=== PATIENT | female | born 1935 | race Caucasian/White ===

== ENCOUNTER 2018-11-28 15:56 | Observation (INO) | payer MEDICARE, BC ==
--- NOTE | 2018-11-28 16:17 | EDM.PDOC ---
<Jerrell Senior - Last Filed: 11/28/18 19:36> ED HPI GENERAL MEDICAL PROBLEM - General Chief Complaint: Abdominal Pain Stated Complaint: SENT BY DR. WHITEHEAD Time Seen by Provider: 11/28/18 16:12 - History of Present Illness INITIAL COMMENTS - FREE TEXT/NARRATIVE: 83-year-old female presents emergency room with abdominal pain. Patient was seen at the [facility], and sent here, she may have a bladder infection which she gets frequently. She is developing significant right lower quadrant pain. She was seen a here in June with the same thing but this is much worse. She was thought to be constipated at that point. The patient had a loose BM yesterday and a normal BM today and denies constipation. She has some nausea no vomiting denies any fevers or chills. Right Abdominal Pain Score (Numeric/FACES): 7 - Related Data Allergies Allergy/AdvReac Type Severity Reaction Status Date / Time Penicillins Allergy Severe Other Verified 11/28/18 16:10 Cephalosporins Allergy Other Verified 11/28/18 16:10 ciprofloxacin [From Cipro] Allergy Vomiting Verified 11/28/18 16:11 meloxicam Allergy Vomiting Verified 11/28/18 16:11 Home Meds: Home Meds Acetaminophen [Pain Reliever] 1,000 mg PO Q6H PRN 01/30/14 [History] Diltiazem [Cardizem CD] 180 mg PO DAILY 01/30/14 [History] Pantoprazole Sodium 40 mg PO DAILY 01/30/14 [History] Potassium Citrate [Potassium Citrate ER] 10 meq PO DAILY 03/30/15 [History] Rosuvastatin [Crestor] 20 mg PO DAILY 03/30/15 [History] Aspirin [Adult Low Dose Aspirin EC] 81 mg PO DAILY 11/28/18 [History] Cyanocobalamin (Vitamin B12) [Vitamin B12] 1,000 mcg PO DAILY 11/28/18 [History] Fish Oil/[place]-3 Fatty Acids [Fish Oil 1,000 MG] 1 each PO DAILY 11/28/18 [ History] Lactulose 10 gm PO Q12H #500 ml 11/28/18 [Rx] Nitrofurantoin Monohyd/M-Cryst [Macrobid 100 mg Capsule] 100 mg PO Q12H #10 capsule 11/28/18 [Rx] Past Medical History HEENT History: Reports: Impaired Vision Cardiovascular History: Reports: High Cholesterol, Hypertension Gastrointestinal History: Reports: Chronic Constipation (Occasional problems with constipation), GERD, GI Bleed, Other (See Below) (Remote history of bleeding ulcer.) Other Gastrointestinal History: "bleeding ulcer" Genitourinary History: Reports: Renal Calculus (Recurrent falls with multiple renal calculi requiring lithotripsy and 1 nephrostomy tube removal of stone in the kidney due to recurrent urinary tract infection. This was done by Dr. Prince in [place]. Usually is followed by Dr. Chowdary in [place].) Other Genitourinary History: Kidney stones Social & Family History - Family History Cardiac: Reports: [place] - Caffeine Use Caffeine Use: Reports: Coffee - Living Situation & Occupation Living situation: Reports: Occupation: Retired ED ROS GENERAL - Review of Systems Review Of Systems: See Below Constitutional: Reports: No Symptoms HEENT: Reports: No Symptoms Respiratory: Reports: No Symptoms Cardiovascular: Reports: No Symptoms GI/Abdominal: Reports: Abdominal Pain, Diarrhea, Nausea. Denies: Constipation, Vomiting : Reports: Dysuria, Flank Pain Musculoskeletal: Reports: No Symptoms Skin: Reports: No Symptoms Neurological: Reports: No Symptoms ED EXAM, GI/ABD - Physical Exam Exam: See Below General Appearance: Alert, No Apparent Distress Head: Atraumatic, Normocephalic Neck: Normal Inspection, Supple, Non-Tender, Full Range of Motion Respiratory/Chest: No Respiratory Distress, Lungs Clear, Normal Breath Sounds Cardiovascular: Regular Rate, Rhythm, No Edema, No Murmur GI/Abdominal Exam: Normal Bowel Sounds, Soft, Other (Significant right lower quadrant discomfort and suprapubic discomfort no rigidity rebound or guarding noted) Back Exam: Normal Inspection, CVA Tenderness (R). No: CVA Tenderness (L) Extremities: Normal Inspection, Normal Range of Motion Neurological: Alert, Oriented, Normal Cognition Psychiatric: Normal Affect, Normal Mood Course - Vital Signs Last Recorded V/S: Last Vital Signs Temp 98.0 F 11/28/18 16:11 Pulse 62 11/28/18 16:11 Resp 18 11/28/18 16:11 BP 149/56 H 11/28/18 16:11 Pulse Ox 97 11/28/18 16:11 - Orders/Labs/Meds Orders: Active Orders 24 hr Category Date Time Status Abdomen 2V AP Flat Upright [CR] Stat Exams 11/28/18 16:36 Taken Abdomen Pelvis w Cont [CT] Stat Exams 11/28/18 17:41 Taken CULTURE URINE [RM] Stat Lab 11/28/18 14:00 Received Levofloxacin/Dextrose 5%-Water [Levaquin in D5W 500 MG/ Med 11/28/18 21:15 Active 100 ML] 500 mg Premix Bag 1 bag IV Q24H Sodium Chloride 0.9% [Normal Saline] 1,000 ml Med 11/28/18 17:43 Active IV ONETIME metroNIDAZOLE/Normal Saline [Flagyl 500 MG in NS 100 ML Med 11/28/18 21:15 Active ] 500 mg Premix Bag 1 bag IV Q8H Medication Orders Sodium Chloride (Normal Saline) 1,000 mls @ 125 mls/hr IV ONETIME ONE Stop: 11/29/18 01:42 Last Admin: 11/28/18 17:52 Dose: 500 mls/hr Metronidazole 500 mg/ Premix 100 mls @ 100 mls/hr IV Q8H MISSAEL Levofloxacin/Dextrose 500 mg/ (Premix) 100 mls @ 100 mls/hr IV Q24H MISSAEL Last Admin: 11/28/18 21:19 Dose: 100 mls/hr Labs: Laboratory Tests 11/28/18 11/28/18 11/28/18 Range/Units 14:40 16:50 16:50 WBC 11.56 H (3.98-10.04) K/mm3 RBC 4.91 (3.98-5.22) M/mm3 Hgb 13.8 (11.2-15.7) gm/L Hct 42.6 (34.1-44.9) % MCV 86.8 (79.4-94.8) fl MCH 28.1 (25.6-32.2) pg MCHC 32.4 (32.2-35.5) g/dl RDW Std Deviation 41.9 (36.4-46.3) fL Plt Count 258 D (182-369) K/mm3 MPV 10.5 (9.4-12.3) fl Neutrophils % (Manual) 63 H (40-60) % Band Neutrophils % 1 (0-10) % Lymphocytes % (Manual) 29 (20-40) % Atypical Lymphs % 4 % Monocytes % (Manual) 3 (2-10) % Eosinophils % (Manual) 0 L (0.7-5.8) % Basophils % (Manual) 0 L (0.1-1.2) Platelet Estimate Adequate RBC Morph Comment Normal Sodium 140 (136-145) mEq/L Potassium 4.2 (3.5-5.1) mEq/L Chloride 103 (98-107) mEq/L Carbon Dioxide 28 (21-32) mEq/L Anion Gap 13.2 (5-15) BUN 19 H (7-18) mg/dL Creatinine 0.9 (0.55-1.02) mg/dL Est Cr Clr Drug Dosing 43.37 mL/min Estimated GFR (MDRD) 60 (>60) mL/min BUN/Creatinine Ratio 21.1 H (14-18) Glucose 97 (83-115) mg/dL Calcium 11.2 H D (8.5-10.1) mg/dL Total Bilirubin 0.6 (0.2-1.0) mg/dL AST 16 (15-37) U/L ALT 19 (14-59) U/L Alkaline Phosphatase 100 (46-116) U/L Total Protein 7.4 (6.4-8.2) g/dl Albumin 3.4 (3.4-5.0) g/dl Globulin 4.0 gm/dL Albumin/Globulin Ratio 0.9 L (1-2) Urine Color Yellow (Yellow) Urine Appearance Slt cloudy H (Clear) Urine pH 7.0 (5.0-8.0) Ur Specific [place] 1.015 (1.005-1.030) Urine Protein Negative (Negative) Urine Glucose (UA) Negative (Negative) Urine Ketones Negative (Negative) Urine Occult Blood 2+ H (Negative) Urine Nitrite Negative (Negative) Urine Bilirubin Negative (Negative) Urine Urobilinogen 0.2 (0.2-1.0) Ur Leukocyte Esterase 2+ H (Negative) Urine RBC 0-5 (0-5) /hpf Urine WBC 5-10 H (0-5) /hpf Ur Squamous Epith Cells 0-5 (0-5) /hpf Urine Bacteria Few (FEW) /hpf Urine Mucus Not seen (FEW) /hpf Meds: Medications Generic Name Dose Route Start Last Admin Trade Name Freq PRN Reason Stop Dose Admin Sodium Chloride 1,000 mls @ 125 mls/hr 11/28/18 17:43 11/28/18 17:52 Normal Saline IV 11/29/18 01:42 500 mls/hr ONETIME ONE Administration Metronidazole 500 mg/ Premix 100 mls @ 100 mls/hr 11/28/18 21:15 IV Q8H MISSAEL Levofloxacin/Dextrose 500 mg/ 100 mls @ 100 mls/hr 11/28/18 21:15 11/28/18 21 :19 Premix IV 100 mls/hr Q24H MISSAEL Administration - Re-Assessments/Exams Free Text/Narrative Re-Assessment/Exam: 11/28/18 17:39 Urinalysis could be consistent with a early urinary tract infection 2+ leukocyte Estrace no nitrates a few red cells a few more WBCs and a few bacteria noted. CBC and chemistries unrevealing KUB and upright were done she's got a full stool pattern in the colon. Reexamination of her abdomen shows right lower quadrant discomfort. With her age and and certainly is reasonable to go ahead and check a CT. Departure - Departure Disposition: Refer to Observation Clinical Impression: Diverticulitis of sigmoid colon Abdominal pain Qualifiers: Abdominal location: lower abdomen, unspecified Qualified Code(s): R10.30 - Lower abdominal pain, unspecified - Discharge Information Prescriptions: Lactulose 10 gm PO Q12H #500 ml Nitrofurantoin Monohyd/M-Cryst [Macrobid 100 mg Capsule] 100 mg PO Q12H #10 capsule Additional Instructions: Return to the emergency room with any questions problems worsening symptoms. Take the antibiotics as directed it is possible you have an early bladder infection. I started you on lactulose take 1 tablespoon twice daily in the beginning you can take 2 tablespoons in the morning 1 tablespoon in the evening it may take up to 48 hours for you to get some relief if the cause ear pain is indeed constipation. - My Orders Last 24 Hours: My Active Orders 11/28/18 21:15 Levofloxacin/Dextrose 5%-Water [Levaquin in D5W 500 MG/100 ML] 500 mg Premix Bag 1 bag IV Q24H metroNIDAZOLE/Normal Saline [Flagyl 500 MG in NS 100 ML] 500 mg Premix Bag 1 bag IV Q8H - Assessment/Plan Last 24 Hours: My Active Orders 11/28/18 21:15 Levofloxacin/Dextrose 5%-Water [Levaquin in D5W 500 MG/100 ML] 500 mg Premix Bag 1 bag IV Q24H metroNIDAZOLE/Normal Saline [Flagyl 500 MG in NS 100 ML] 500 mg Premix Bag 1 bag IV Q8H <Khoa Acevedo Hazel - Last Filed: 11/28/18 21:33> Course - Re-Assessments/Exams Free Text/Narrative Re-Assessment/Exam: 11/28/18 21:01 CT scan of her abdomen shows a sigmoid diverticulitis. There is no abscess formation noted. I spoke to Dr. Sanderson regarding the CT scan and she is allergic to cephalosporins as well as penicillins and has a vomiting allergy to Cipro. We're going to start some Flagyl IV and Levaquin IV and put her in observation for the night to make sure she tolerates these medications. I spoke to the patient regarding her findings and our desire to put her in observation with IV antibiotics and she is good with this. 11/28/18 21:10 I spoke to the patient regarding her admission and observation and IV antibiotics. She is okay with us giving her the antibiotics IV and being placed in observation overnight. 11/28/18 21:32 Patient is comfortable and will be placed in observation shortly. Departure - Departure Time of Disposition: 21:03 Condition: Fair ED Communication - ED Communication Date/Time Date: 11/28/18 Time Called: 21:04 - Discussed Case With (1) Discussed Case With (1): Admitting Provider Person/s Notified (1): Mago Rucker (He will admitted to observation) - My Orders Last 24 Hours: My Active Orders 11/28/18 21:15 Levofloxacin/Dextrose 5%-Water [Levaquin in D5W 500 MG/100 ML] 500 mg Premix Bag 1 bag IV Q24H metroNIDAZOLE/Normal Saline [Flagyl 500 MG in NS 100 ML] 500 mg Premix Bag 1 bag IV Q8H - Assessment/Plan Last 24 Hours: My Active Orders 11/28/18 21:15 Levofloxacin/Dextrose 5%-Water [Levaquin in D5W 500 MG/100 ML] 500 mg Premix Bag 1 bag IV Q24H metroNIDAZOLE/Normal Saline [Flagyl 500 MG in NS 100 ML] 500 mg Premix Bag 1 bag IV Q8H
[2018-11-28] MEDS ORDERED: Sodium Chloride 0.9% 1,000 ML IV ONE (17:43)
[2018-11-28] MEDS ORDERED: Levofloxacin/Dextrose 5%-Water 500 MG in Premix Bag 1 BAG IV SCH (21:15)
[2018-11-28] MEDS: metroNIDAZOLE/Normal Saline 500 MG in Premix Bag 1 BAG IV SCH (22:33)
[2018-11-28] MEDS ORDERED: Ondansetron 4 MG/2 ML SDV IVPUSH PRN (23:01)
[2018-11-28] MEDS: Sodium Chloride 0.9% 1,000 ML IV SCH (23:26)
[2018-11-29] MEDS: metroNIDAZOLE/Normal Saline 500 MG in Premix Bag 1 BAG IV SCH ×3 (04:18→20:18)
[2018-11-29] MEDS: HYDROmorphone 0.5 MG/0.5 ML Syringe IVPUSH PRN ×3 (04:26→17:28)
--- NOTE | 2018-11-29 06:11 | PCM.HP ---
H&P History of Present Illness - General Date of Service: 11/29/18 Admit Problem/Dx: Admission Diagnosis/Problem Admission Diagnosis/Problem Diverticulitis Source of Information: Patient, Provider - History of Present Illness Initial Comments - Free Text/Narative: This 83-year-old female who presented to her primary care provider with right lower abdominal pain yesterday was then sent to the emergency room. Patient states that pain started after an episode of diarrhea. She had 4 episodes of liquid diarrhea. Diarrhea did resolve and she had a normal bowel movement yesterday morning. She did develop right lower quadrant pain that was worse with walking or movement. Sharp. Moderately severe. Sharp with movement and severe with movement. She felt tired. She presented to the emergency room a CT scan was performed which showed inflammation consistent with diverticulitis on the right side. She had mildly elevated white count and it was felt she could benefit from IV antibiotics and observation in the hospital. Patient denies any hematochezia, melena, nausea, vomiting, dysuria, frequency, productive cough, shortness of breath, chest pain. Right Abdominal Pain Score (Numeric/FACES): 4 - Related Data Allergies/Adverse Reactions: Allergies Allergy/AdvReac Type Severity Reaction Status Date / Time Penicillins Allergy Severe Other Verified 11/28/18 16:10 Cephalosporins Allergy Other Verified 11/28/18 16:10 ciprofloxacin [From Cipro] AdvReac Vomiting Verified 11/29/18 08:05 meloxicam AdvReac Vomiting Verified 11/29/18 08:05 Home Medications: Home Meds Acetaminophen [Pain Reliever] 1,000 mg PO TID PRN 01/30/14 [History] Diltiazem [Cardizem CD] 180 mg PO DAILY 01/30/14 [History] Pantoprazole Sodium 40 mg PO DAILY 01/30/14 [History] Potassium Citrate [Potassium Citrate ER] 10 meq PO DAILY 03/30/15 [History] Rosuvastatin [Crestor] 5 mg PO DAILY 03/30/15 [History] Aspirin [Adult Low Dose Aspirin EC] 81 mg PO DAILY 11/28/18 [History] Cyanocobalamin (Vitamin B12) [Vitamin B12] 1,000 mcg PO DAILY 11/28/18 [History] Fish Oil/[place]-3 Fatty Acids [Fish Oil 1,000 MG] 1 each PO DAILY 11/28/18 [ History] Past Medical History HEENT History: Reports: Impaired Vision Cardiovascular History: Reports: High Cholesterol, Hypertension Gastrointestinal History: Reports: Chronic Constipation, GERD, GI Bleed, Other ( See Below) Other Gastrointestinal History: "bleeding ulcer" Genitourinary History: Reports: Renal Calculus Other Genitourinary History: Kidney stones - Past Surgical History GI Surgical History: Reports: None Social & Family History - Family History Family Medical History: Noncontributory Cardiac: Reports: MD - Tobacco Use Smoking Status *Q: Current Every Day Smoker Years of Tobacco use: 66 Packs/Tins Daily: 1 Used Tobacco, but Quit: No Second Hand Smoke Exposure: No - Caffeine Use Caffeine Use: Reports: Coffee - Recreational Drug Use Recreational Drug Use: No - Living Situation & Occupation Living situation: Reports: Occupation: Retired H&P Review of Systems - Review of Systems: Review Of Systems: ROS reveals no pertinent complaints other than HPI. General: Reports: Fatigue. Denies: Fever, Chills Exam - Exam Exam: See Below - Vital Signs Vital Signs: Last Vital Signs Temp 98.8 F 11/28/18 22:01 Pulse 75 11/28/18 22:01 Resp 14 11/28/18 22:01 BP 149/56 H 11/28/18 16:11 Pulse Ox 95 11/28/18 22:01 Weight: 143 lb 9.6 oz - Exam General: Alert, Oriented HEENT: Conjunctiva Clear, Mucosa Moist & [place], Posterior Pharynx Clear Neck: Supple, Trachea Midline Lungs: Clear to Auscultation, Normal Respiratory Effort Cardiovascular: Regular Rate, Regular Rhythm, Systolic Murmur GI/Abdominal Exam: Normal Bowel Sounds, Soft, No Organomegaly, No Distention, Tender (Mildly tender without guarding or rebound.) Back Exam: Normal Inspection Extremities: Normal Inspection, Normal Range of Motion, Non-Tender, Pedal Edema Skin: Warm, Dry, Intact Neuro Extensive - Mental Status: Alert, Oriented x3, Normal Mood/Affect Neuro Extensive - Motor, Sensory, Reflexes: CN II-XII Intact - Patient Data Lab Results Last 24 hrs: Laboratory Results - last 24 hr 11/28/18 11/28/18 11/28/18 Range/Units 14:40 16:50 16:50 WBC 11.56 H (3.98-10.04) K/mm3 RBC 4.91 (3.98-5.22) M/mm3 Hgb 13.8 (11.2-15.7) gm/L Hct 42.6 (34.1-44.9) % MCV 86.8 (79.4-94.8) fl MCH 28.1 (25.6-32.2) pg MCHC 32.4 (32.2-35.5) g/dl RDW Std Deviation 41.9 (36.4-46.3) fL Plt Count 258 D (182-369) K/mm3 MPV 10.5 (9.4-12.3) fl Neutrophils % (Manual) 63 H (40-60) % Band Neutrophils % 1 (0-10) % Lymphocytes % (Manual) 29 (20-40) % Atypical Lymphs % 4 % Monocytes % (Manual) 3 (2-10) % Eosinophils % (Manual) 0 L (0.7-5.8) % Basophils % (Manual) 0 L (0.1-1.2) Platelet Estimate Adequate RBC Morph Comment Normal Sodium 140 (136-145) mEq/L Potassium 4.2 (3.5-5.1) mEq/L Chloride 103 (98-107) mEq/L Carbon Dioxide 28 (21-32) mEq/L Anion Gap 13.2 (5-15) BUN 19 H (7-18) mg/dL Creatinine 0.9 (0.55-1.02) mg/dL Est Cr Clr Drug Dosing 43.37 mL/min Estimated GFR (MDRD) 60 (>60) mL/min BUN/Creatinine Ratio 21.1 H (14-18) Glucose 97 (83-115) mg/dL Calcium 11.2 H D (8.5-10.1) mg/dL Total Bilirubin 0.6 (0.2-1.0) mg/dL AST 16 (15-37) U/L ALT 19 (14-59) U/L Alkaline Phosphatase 100 (46-116) U/L Total Protein 7.4 (6.4-8.2) g/dl Albumin 3.4 (3.4-5.0) g/dl Globulin 4.0 gm/dL Albumin/Globulin Ratio 0.9 L (1-2) Urine Color Yellow (Yellow) Urine Appearance Slt cloudy H (Clear) Urine pH 7.0 (5.0-8.0) Ur Specific [place] 1.015 (1.005-1.030) Urine Protein Negative (Negative) Urine Glucose (UA) Negative (Negative) Urine Ketones Negative (Negative) Urine Occult Blood 2+ H (Negative) Urine Nitrite Negative (Negative) Urine Bilirubin Negative (Negative) Urine Urobilinogen 0.2 (0.2-1.0) Ur Leukocyte Esterase 2+ H (Negative) Urine RBC 0-5 (0-5) /hpf Urine WBC 5-10 H (0-5) /hpf Ur Squamous Epith Cells 0-5 (0-5) /hpf Urine Bacteria Few (FEW) /hpf Urine Mucus Not seen (FEW) /hpf Result Diagrams: 11/29/18 05:54 11/29/18 05:54 - Problem List (1) Abdominal pain SNOMED Code(s): 11193393 ICD Code: R10.9 - UNSPECIFIED ABDOMINAL PAIN Status: Acute Current Visit : Yes Qualifiers: Abdominal location: lower abdomen, unspecified Qualified Code(s): R10.30 - Lower abdominal pain, unspecified (2) Diverticulitis of sigmoid colon SNOMED Code(s): 373607131 ICD Code: K57.32 - DVTRCLI OF LG INT W/O PERFORATION OR ABSCESS W/O BLEEDING Status: Acute Current Visit: Yes (3) Urinary tract infection SNOMED Code(s): 04822904 ICD Code: N39.0 - URINARY TRACT INFECTION, SITE NOT SPECIFIED Status: Acute Current Visit: Yes Qualifiers: Encounter type: initial encounter Problem List Initiated/Reviewed/Updated: Yes Orders Last 24hrs: Active Orders 24 hr Category Date Time Status Patient Status [ADT] Routine ADT 11/28/18 21:39 Active Up With Assistance [RC] ASDIRECTED Care 11/28/18 22:58 Active Regular Diet [DIET] Diet 11/29/18 Breakfast Ordered Abdomen 2V AP Flat Upright [CR] Stat Exams 11/28/18 16:36 Taken Abdomen Pelvis w Cont [CT] Stat Exams 11/28/18 17:41 Taken CBC WITH AUTO DIFF [HEME] Routine Lab 11/29/18 05:02 Ordered COMPREHENSIVE METABOLIC PN,CMP [CHEM] Routine Lab 11/29/18 05:02 Ordered CULTURE URINE [RM] Stat Lab 11/28/18 14:00 Received MAGNESIUM [CHEM] Routine Lab 11/29/18 05:02 Ordered Diltiazem [Cardizem CD] Med 11/29/18 09:00 Active 180 mg PO DAILY HYDROmorphone [Dilaudid] Med 11/28/18 23:02 Active 0.5 mg IVPUSH Q2H PRN Ondansetron [Zofran] Med 11/28/18 23:01 Active 4 mg IVPUSH Q6H PRN Pantoprazole [ProTONIX] Med 11/29/18 09:00 Active 40 mg PO DAILY Potassium Citrate [Potassium Citrate ER] Med 11/29/18 09:00 Pending 10 meq PO DAILY Rosuvastatin [Crestor] Med 11/29/18 09:00 Active 5 mg PO DAILY Sodium Chloride 0.9% [Normal Saline] 1,000 ml Med 11/28/18 23:00 Active IV ASDIRECTED levoFLOXacin [Levaquin] Med 11/29/18 21:00 Ordered 750 mg PO Q24H metroNIDAZOLE/Normal Saline [Flagyl 500 MG in NS 100 ML Med 11/28/18 21:15 Active ] 500 mg Premix Bag 1 bag IV Q8H Code Status [Resuscitation Status] Routine Resus Stat 11/28/18 22:57 Ordered Medication Orders Diltiazem HCl (Cardizem Cd) 180 mg PO DAILY [facility] Hydromorphone HCl (Dilaudid) 0.5 mg IVPUSH Q2H PRN PRN Reason: Pain Last Admin: 11/29/18 04:26 Dose: 0.5 mg Metronidazole 500 mg/ Premix 100 mls @ 100 mls/hr IV Q8H [facility] Last Admin: 11/29/18 04:18 Dose: 100 mls/hr Infusion: 11/28/18 23:33 Dose: 100 mls/hr Admin: 11/28/18 22:33 Dose: 100 mls/hr Sodium Chloride (Normal Saline) 1,000 mls @ 125 mls/hr IV ASDIRECTED [facility] Last Admin: 11/28/18 23:26 Dose: 125 mls/hr Non-Formulary Medication (Potassium Citrate [Potassium Citrate Er]) 10 meq PO DAILY [facility] Ondansetron HCl (Zofran) 4 mg IVPUSH Q6H PRN PRN Reason: Nausea Pantoprazole Sodium (Protonix) 40 mg PO DAILY MISSAEL Rosuvastatin Calcium (Crestor) 5 mg PO DAILY MISSAEL Assessment/Plan Comment:: Diverticulitis * Patient is allergic to penicillin and cephalosporins. * White count was 11.5 the emergency room and 10.7 this morning. * Started on Levaquin 500 mg IV in the emergency room and we will convert that to 750 mg by mouth. She did give a history of Cipro allergy but it sounds like a GI intolerance and it may have been due to the meloxicam that she was taking at the same time. * Flagyl 500 mg every 8 hours * Follow patient symptomatically for her abdominal pain. This will likely be the limiting factor in getting her home. She is able to take orally and I will convert her to oral Flagyl tomorrow. * Dilaudid for severe pain and [place] for mild pain. Urinary tract infection * Levaquin should cover her UTI * Send her urine for culture Hypomagnesemia * Magnesium was 1.4 this morning we will supplement and recheck. Chronic medical problems include history of supraventricular tachycardia, hypertension, hyperlipidemia, heart murmur. CODE STATUS: Full code Estimated length of stay 1-2 days. Less than 48 hours.
[2018-11-29] MEDS ORDERED: Magnesium Sulfate/Water 4 GM in Premix Bag 1 BAG IV ONE (07:21)
[2018-11-29] MEDS ORDERED: POTASSIUM CITRATE 10 MEQ PO SCH (09:00)
[2018-11-29] MEDS ORDERED: Diltiazem 180 MG Cap.CD PO SCH (09:00)
[2018-11-29] MEDS ORDERED: Rosuvastatin 10 MG Tab PO SCH (09:00)
[2018-11-29] MEDS: Sodium Chloride 0.9% 1,000 ML IV SCH ×2 (10:15→19:15)
[2018-11-29] MEDS ORDERED: oxyCODONE 5 MG Tab PO PRN (14:28)
[2018-11-29] MEDS: PANTOPRAZOLE 40 MG PO SCH (14:59)
[2018-11-29] MEDS: Magnesium Oxide 400 MG Tab PO SCH (17:24)
[2018-11-29] MEDS: POTASSIUM CITRATE 10 MEQ PO SCH (20:02)
[2018-11-29] MEDS: DILTIAZEM 180 MG PO SCH (20:02)
[2018-11-29] MEDS: Rosuvastatin 10 MG Tab PO SCH (20:04)
[2018-11-29] MEDS ORDERED: Levofloxacin 750 MG Tab PO SCH (21:00)
[2018-11-30] MEDS: Sodium Chloride 0.9% 1,000 ML IV SCH (03:45)
[2018-11-30] MEDS: metroNIDAZOLE/Normal Saline 500 MG in Premix Bag 1 BAG IV SCH (05:03)
[2018-11-30] MEDS: HYDROmorphone 0.5 MG/0.5 ML Syringe IVPUSH PRN (06:39)
[2018-11-30] MEDS: Magnesium Oxide 400 MG Tab PO SCH ×2 (08:28→20:27)
[2018-11-30] MEDS: PANTOPRAZOLE 40 MG PO SCH (08:28)
[2018-11-30] MEDS ORDERED: Acetaminophen 325 MG Tab PO PRN (12:06)
[2018-11-30] MEDS ORDERED: Furosemide 20 MG/2 ML VIAL IVPUSH ONE (12:34)
[2018-11-30] MEDS ORDERED: Potassium Chloride 10 MEQ Tab.ER PO ONE (12:34)
--- NOTE | 2018-11-30 12:43 | PCM.PN ---
- General Info Date of Service: 11/30/18 Admission Dx/Problem (Free Text): Admission Diagnosis/Problem Admission Diagnosis/Problem Diverticulitis Subjective Update: Patient continues to complain of right lower quadrant pain. She states it is too severe to go home. Patient also had her IV fluids running overnight and has had a 10 pound weight gain. She has significant positive fluid intake. She denies any shortness of breath and she is maintaining her oxygenation. She has no history of CHF. Functional Status: Reports: Tolerating Diet. Denies: Pain Controlled - Review of Systems General: Reports: No Symptoms. Denies: Fever, Weakness HEENT: Reports: No Symptoms Pulmonary: Reports: No Symptoms. Denies: Shortness of Breath, Cough, Wheezing Cardiovascular: Reports: Edema. Denies: Chest Pain, Orthopnea, PND Gastrointestinal: Reports: Abdominal Pain. Denies: Nausea, Vomiting Skin: Reports: No Symptoms - Patient Data Vitals - Most Recent: Last Vital Signs Temp 97.7 F 11/30/18 08:33 Pulse 54 L 11/30/18 08:33 Resp 16 11/30/18 08:33 BP 133/55 L 11/30/18 08:33 Pulse Ox 92 L 11/30/18 08:33 Weight - Most Recent: 153 lb 8 oz I&O - Last 24 Hours: Intake & Output 11/29/18 11/30/18 11/30/18 22:59 06:59 14:59 Intake Total 1878 1851 300 Output Total 200 Balance 1878 1651 300 Lab Results Last 24 Hours: Laboratory Results - last 24 hr 11/29/18 11/30/18 11/30/18 Range/Units 05:54 05:49 05:49 WBC 9.66 (3.98-10.04) K/mm3 RBC 4.00 (3.98-5.22) M/mm3 Hgb 11.2 (11.2-15.7) gm/L Hct 34.8 (34.1-44.9) % MCV 87.0 (79.4-94.8) fl MCH 28.0 (25.6-32.2) pg MCHC 32.2 (32.2-35.5) g/dl RDW Std Deviation 41.1 (36.4-46.3) fL Plt Count 213 (182-369) K/mm3 MPV 10.3 (9.4-12.3) fl Neut % (Auto) 68.5 (34.0-71.1) % Lymph % (Auto) 17.0 L (19.3-51.7) % [place] % (Auto) 13.9 H (4.7-12.5) % Eos % (Auto) 0.4 L (0.7-5.8) Baso % (Auto) 0.1 (0.1-1.2) % Neut # (Auto) 6.62 H (1.56-6.13) K/mm3 Lymph # (Auto) 1.64 (1.18-3.74) K/mm3 [place] # (Auto) 1.34 H (0.24-0.36) K/mm3 Eos # (Auto) 0.04 (0.04-0.36) K/mm3 Baso # (Auto) 0.01 (0.01-0.08) K/mm3 Sodium 139 (136-145) mEq/L Potassium 3.7 (3.5-5.1) mEq/L Chloride 107 (98-107) mEq/L Carbon Dioxide 22 (21-32) mEq/L Anion Gap 13.7 (5-15) BUN 10 (7-18) mg/dL Creatinine 0.7 (0.55-1.02) mg/dL Est Cr Clr Drug Dosing 53.51 mL/min Estimated GFR (MDRD) > 60 (>60) mL/min BUN/Creatinine Ratio 14.3 (14-18) Glucose 101 (83-115) mg/dL Calcium 9.3 (8.5-10.1) mg/dL Magnesium 1.8 (1.8-2.4) mg/dl Total Bilirubin 0.4 (0.2-1.0) mg/dL AST 22 (15-37) U/L ALT 20 (14-59) U/L Alkaline Phosphatase 90 (46-116) U/L C-Reactive Protein 7.0 H* 7.6 H* (<1.0) mg/dL Total Protein 5.6 L (6.4-8.2) g/dl Albumin 2.5 L (3.4-5.0) g/dl Globulin 3.1 gm/dL Albumin/Globulin Ratio 0.8 L (1-2) Tu Results Last 24 Hours: Microbiology 05/24/19 14:00 Urine Culture - Final Urine, Clean Catch MIXED PETE SUGGESTIVE OF CONTAMINATION. Med Orders - Current: Current Medications Acetaminophen (Tylenol) 650 mg PO Q4H PRN PRN Reason: Pain Last Admin: 11/30/18 12:12 Dose: 650 mg Diltiazem HCl (Cardizem Cd) 180 mg PO BEDTIME [facility] Last Admin: 11/29/18 20:02 Dose: 180 mg Furosemide (Lasix) 10 mg IVPUSH NOW ONE Stop: 11/30/18 12:35 Hydromorphone HCl (Dilaudid) 0.5 mg IVPUSH Q2H PRN PRN Reason: Pain Last Admin: 11/30/18 06:39 Dose: 0.5 mg Levofloxacin (Levaquin) 750 mg PO Q48H [facility] Magnesium Oxide (Magnesium Oxide) 400 mg PO BID [facility] Last Admin: 11/30/18 08:28 Dose: 400 mg Metronidazole (Flagyl) 500 mg PO Q8H [facility] Ondansetron HCl (Zofran) 4 mg IVPUSH Q6H PRN PRN Reason: Nausea Oxycodone HCl (Oxycodone) 5 mg PO Q6H PRN PRN Reason: Pain Pantoprazole Sodium (Protonix) 40 mg PO DAILY [facility] Last Admin: 11/30/18 08:28 Dose: 40 mg Own Med * Potassium (Citrate Er 10 Meq) 0 each PO BEDTIME [facility] Last Admin: 11/29/18 20:02 Dose: 1 each Potassium Chloride (Klor-Con 10) 10 meq PO ONETIME ONE Stop: 11/30/18 12:35 Rosuvastatin Calcium (Crestor) 5 mg PO BEDTIME [facility] Last Admin: 11/29/18 20:04 Dose: Not Given Discontinued Medications Diltiazem HCl (Cardizem Cd) 180 mg PO DAILY [facility] Last Admin: 11/29/18 15:07 Dose: Not Given Sodium Chloride (Normal Saline) 1,000 mls @ 125 mls/hr IV ONETIME ONE Stop: 11/29/18 01:42 Last Admin: 11/28/18 17:52 Dose: 500 mls/hr Metronidazole 500 mg/ Premix 100 mls @ 100 mls/hr IV Q8H [facility] Last Admin: 11/30/18 05:03 Dose: 100 mls/hr Levofloxacin/Dextrose 500 mg/ (Premix) 100 mls @ 100 mls/hr IV Q24H [facility] Last Admin: 11/28/18 21:19 Dose: 100 mls/hr Sodium Chloride (Normal Saline) 1,000 mls @ 125 mls/hr IV ASDIRECTED [facility] Last Admin: 11/30/18 03:45 Dose: 125 mls/hr Magnesium Sulfate 4 gm/ Premix 50 mls @ 12.5 mls/hr IV ONETIME ONE Stop: 11/29/18 11:20 Last Admin: 11/29/18 09:02 Dose: 12.5 mls/hr Levofloxacin (Levaquin) 750 mg PO Q24H [facility] Potassium Citrate Er (10 Meq) 0 each PO DAILY [facility] Last Admin: 11/29/18 12:03 Dose: Not Given Rosuvastatin Calcium (Crestor) 5 mg PO DAILY [facility] Last Admin: 11/29/18 12:03 Dose: Not Given - Exam Quality Assessment: No: Supplemental Oxygen General: Alert, Oriented HEENT: Pupils Equal, Pupils Reactive Neck: Supple Lungs: Normal Respiratory Effort, Rales Cardiovascular: Regular Rate, Regular Rhythm, No Murmurs GI/Abdominal Exam: Normal Bowel Sounds, Soft, No Distention, Tender (Mild right lower quadrant tenderness) Back Exam: Normal Inspection Extremities: Normal Inspection, Pedal Edema (2+) Skin: Warm Neurological: No New Focal Deficit Psy/Mental Status: Normal Affect - Problem List & Annotations (1) Abdominal pain SNOMED Code(s): 52619640 Code(s): R10.9 - UNSPECIFIED ABDOMINAL PAIN Status: Acute Current Visit: Yes Qualifiers: Abdominal location: lower abdomen, unspecified Qualified Code(s): R10.30 - Lower abdominal pain, unspecified (2) Diverticulitis of sigmoid colon SNOMED Code(s): 288755005 Code(s): K57.32 - DVTRCLI OF LG INT W/O PERFORATION OR ABSCESS W/O BLEEDING Status: Acute Current Visit: Yes (3) Urinary tract infection SNOMED Code(s): 38587743 Code(s): N39.0 - URINARY TRACT INFECTION, SITE NOT SPECIFIED Status: Acute Current Visit: Yes Qualifiers: Encounter type: initial encounter - Problem List Review Problem List Initiated/Reviewed/Updated: Yes - My Orders Last 24 Hours: My Active Orders 11/29/18 14:28 oxyCODONE 5 mg PO Q6H PRN 11/29/18 14:55 Antiembolic Devices [RC] PER UNIT ROUTINE VEL Hose [Antiembolic Hose] [OM.PC] Routine 11/29/18 17:00 Magnesium Oxide 400 mg PO BID 11/29/18 21:00 Diltiazem [Cardizem CD] 180 mg PO BEDTIME Patient's Own Medication [Ptom] 0 each PO BEDTIME Rosuvastatin [Crestor] 5 mg PO BEDTIME 11/30/18 12:06 Acetaminophen [Tylenol] 650 mg PO Q4H PRN 11/30/18 12:34 Furosemide [Lasix] 10 mg IVPUSH NOW ONE Potassium Chloride [Klor-Con 10] 10 meq PO ONETIME ONE 11/30/18 12:45 metroNIDAZOLE [Flagyl] 500 mg PO Q8H 11/30/18 21:00 levoFLOXacin [Levaquin] 750 mg PO Q48H 12/01/18 05:11 BASIC METABOLIC PANEL,BMP [CHEM] AM C-REACTIVE PROTEIN [CHEM] AM CBC WITH AUTO DIFF [HEME] AM MAGNESIUM [CHEM] AM - Plan Plan:: Diverticulitis * Patient is allergic to penicillin and cephalosporins. * White count was 11.5 the emergency room now it is normal. * Started on Levaquin 500 mg IV in the emergency room and we will convert that to 750 mg by mouth. She did give a history of Cipro allergy but it sounds like a GI intolerance and it may have been due to the meloxicam that she was taking at the same time. * Flagyl 500 mg every 8 hours switched to by mouth * Follow patient symptomatically for her abdominal pain. This will likely be the limiting factor in getting her home. * Dilaudid for severe pain and [place] for mild pain. Urinary tract infection * Levaquin should cover her UTI * Send her urine for culture Hypomagnesemia * Resolved with magnesium of 2.0 Fluid overload * Patient has had a 10 pound weight gain * Give a low dose Lasix 10 mg IV 1 and potassium 10 mEq by mouth * Stop fluids * Recheck CMP in the morning Chronic medical problems include history of supraventricular tachycardia, hypertension, hyperlipidemia, heart murmur. CODE STATUS: Full code Estimated length of stay 3 days.
[2018-11-30] MEDS: metroNIDAZOLE 500 MG Tab PO SCH ×2 (13:11→20:27)
[2018-11-30] MEDS: DILTIAZEM 180 MG PO SCH (20:28)
[2018-11-30] MEDS: POTASSIUM CITRATE 10 MEQ PO SCH (20:29)
[2018-11-30] MEDS: Rosuvastatin 10 MG Tab PO SCH (20:44)
[2018-11-30] MEDS ORDERED: Levofloxacin 750 MG Tab PO SCH (21:00)
[2018-12-01] MEDS: metroNIDAZOLE 500 MG Tab PO SCH ×2 (05:18→12:15)
[2018-12-01] MEDS ORDERED: Magnesium Sulfate/Water 4 GM in Premix Bag 1 BAG IV ONE (07:30)
[2018-12-01] MEDS: PANTOPRAZOLE 40 MG PO SCH (08:12)
[2018-12-01] MEDS: Magnesium Oxide 400 MG Tab PO SCH (08:12)
[2018-12-01 08:21] VITALS: BP 135/58
--- NOTE | 2018-12-01 09:11 | PCM.DCSUM1 ---
Discharge Summary - Hospital Course HPI Initial Comments: This 83-year-old female who presented to her primary care provider with right lower abdominal pain yesterday was then sent to the emergency room. Patient states that pain started after an episode of diarrhea. She had 4 episodes of liquid diarrhea. Diarrhea did resolve and she had a normal bowel movement yesterday morning. She did develop right lower quadrant pain that was worse with walking or movement. Sharp. Moderately severe. Sharp with movement and severe with movement. She felt tired. She presented to the emergency room a CT scan was performed which showed inflammation consistent with diverticulitis on the right side. She had mildly elevated white count and it was felt she could benefit from IV antibiotics and observation in the hospital. Patient denies any hematochezia, melena, nausea, vomiting, dysuria, frequency, productive cough, shortness of breath, chest pain. Diagnosis: Stroke: No - Discharge Data Discharge Date: 12/01/18 Discharge Disposition: Home, Self-Care 01 Condition: Good - Discharge Diagnosis/Problem(s) (1) Abdominal pain SNOMED Code(s): 38038742 ICD Code: R10.9 - UNSPECIFIED ABDOMINAL PAIN Status: Acute Current Visit : Yes Qualifiers: Abdominal location: lower abdomen, unspecified Qualified Code(s): R10.30 - Lower abdominal pain, unspecified (2) Diverticulitis of sigmoid colon SNOMED Code(s): 208506068 ICD Code: K57.32 - DVTRCLI OF LG INT W/O PERFORATION OR ABSCESS W/O BLEEDING Status: Acute Current Visit: Yes (3) Urinary tract infection SNOMED Code(s): 02191429 ICD Code: N39.0 - URINARY TRACT INFECTION, SITE NOT SPECIFIED Status: Acute Current Visit: Yes Qualifiers: Encounter type: initial encounter - Patient Instructions Diet: Heart Healthy Diet Driving: May Drive Today Showering/Bathing: May Shower Other/Special Instructions: Follow up with PCP in 1 week. Eat a high fiber diet. - Discharge Plan *PRESCRIPTION DRUG MONITORING PROGRAM REVIEWED*: No *COPY OF PRESCRIPTION DRUG MONITORING REPORT IN PATIENT KENYA: No Prescriptions/Med Rec: levoFLOXacin [Levaquin] 750 mg PO Q48H #4 tablet metroNIDAZOLE [Flagyl] 500 mg PO Q8H #21 tablet Home Medications: Home Meds Acetaminophen [Pain Reliever] 1,000 mg PO TID PRN 01/30/14 [History] Diltiazem [Cardizem CD] 180 mg PO DAILY 01/30/14 [History] Pantoprazole Sodium 40 mg PO DAILY 01/30/14 [History] Potassium Citrate [Potassium Citrate ER] 10 meq PO DAILY 03/30/15 [History] Rosuvastatin [Crestor] 5 mg PO DAILY 03/30/15 [History] Aspirin [Adult Low Dose Aspirin EC] 81 mg PO DAILY 11/28/18 [History] Cyanocobalamin (Vitamin B12) [Vitamin B12] 1,000 mcg PO DAILY 11/28/18 [History] Fish Oil/[place]-3 Fatty Acids [Fish Oil 1,000 MG] 1 each PO DAILY 11/28/18 [ History] levoFLOXacin [Levaquin] 750 mg PO Q48H #4 tablet 12/01/18 [Rx] metroNIDAZOLE [Flagyl] 500 mg PO Q8H #21 tablet 12/01/18 [Rx] Oxygen Therapy Mode: Room Air Patient Handouts: High-Fiber Diet, Diverticulitis - Discharge Summary/Plan Comment DC Time >30 min.: Yes Discharge Summary/Plan Comment: Diverticulitis * Patient is allergic to penicillin and cephalosporins. * White count was 11.5 the emergency room now it is normal. * Started on Levaquin 500 mg IV in the emergency room and we will convert that to 750 mg by mouth. She did give a history of Cipro allergy but it sounds like a GI intolerance and it may have been due to the meloxicam that she was taking at the same time. * Flagyl 500 mg every 8 hours switched to by mouth Urinary tract infection * Levaquin should cover her UTI * Awaiting urine for culture results Hypomagnesemia * Resolved with magnesium of 2.0 Chronic medical problems include history of supraventricular tachycardia, hypertension, hyperlipidemia, heart murmur. - General Info Date of Service: 12/01/18 Admission Dx/Problem (Free Text: Admission Diagnosis/Problem Admission Diagnosis/Problem Diverticulitis Subjective Update: November 30, 2018 Patient continues to complain of right lower quadrant pain. She states it is too severe to go home. Patient also had her IV fluids running overnight and has had a 10 pound weight gain. She has significant positive fluid intake. She denies any shortness of breath and she is maintaining her oxygenation. She has no history of CHF. December 01, 2018 Patient had a good evening. She had a large amount of gas and some stool which helped her abdominal pain. She continues to have mild right lower quadrant pain that is worse with palpation. Patient also had a 2 pound weight loss. She denies any shortness of breath, chest pain, orthopnea, or PND. - Review of Systems General: Reports: No Symptoms HEENT: Reports: No Symptoms Pulmonary: Reports: No Symptoms. Denies: Shortness of Breath Cardiovascular: Reports: No Symptoms. Denies: Chest Pain, Dyspnea on Exertion Gastrointestinal: Reports: Abdominal Pain, [place] Genitourinary: Reports: No Symptoms Musculoskeletal: Reports: No Symptoms - Patient Data Vitals - Most Recent: Last Vital Signs Temp 97.7 F 12/01/18 08:16 Pulse 78 12/01/18 08:16 Resp 20 12/01/18 08:16 BP 135/58 L 12/01/18 08:16 Pulse Ox 98 12/01/18 08:16 Weight - Most Recent: 151 lb 11.2 oz I&O - Last 24 hours: Intake & Output 11/30/18 12/01/18 12/01/18 22:59 06:59 14:59 Intake Total 1320 800 Balance 1320 800 Lab Results - Last 24 hrs: Laboratory Results - last 24 hr 12/01/18 12/01/18 Range/Units 05:09 05:09 WBC 8.75 (3.98-10.04) K/mm3 RBC 4.30 (3.98-5.22) M/mm3 Hgb 12.1 (11.2-15.7) gm/L Hct 37.0 (34.1-44.9) % MCV 86.0 (79.4-94.8) fl MCH 28.1 (25.6-32.2) pg MCHC 32.7 (32.2-35.5) g/dl RDW Std Deviation 40.5 (36.4-46.3) fL Plt Count 227 (182-369) K/mm3 MPV 11.1 (9.4-12.3) fl Neut % (Auto) 71.4 H (34.0-71.1) % Lymph % (Auto) 15.2 L (19.3-51.7) % [place] % (Auto) 12.8 H (4.7-12.5) % Eos % (Auto) 0.5 L (0.7-5.8) Baso % (Auto) 0.1 (0.1-1.2) % Neut # (Auto) 6.25 H (1.56-6.13) K/mm3 Lymph # (Auto) 1.33 (1.18-3.74) K/mm3 [place] # (Auto) 1.12 H (0.24-0.36) K/mm3 Eos # (Auto) 0.04 (0.04-0.36) K/mm3 Baso # (Auto) 0.01 (0.01-0.08) K/mm3 Sodium 140 (136-145) mEq/L Potassium 3.9 (3.5-5.1) mEq/L Chloride 106 (98-107) mEq/L Carbon Dioxide 23 (21-32) mEq/L Anion Gap 14.9 (5-15) BUN 14 (7-18) mg/dL Creatinine 0.8 (0.55-1.02) mg/dL Est Cr Clr Drug Dosing 46.82 mL/min Estimated GFR (MDRD) > 60 (>60) mL/min BUN/Creatinine Ratio 17.5 (14-18) Glucose 97 (83-115) mg/dL Calcium 9.9 (8.5-10.1) mg/dL Magnesium 1.6 L (1.8-2.4) mg/dl C-Reactive Protein 6.4 H* (<1.0) mg/dL [place] Results - Last 24 hrs: Microbiology 11/28/18 14:00 Urine Culture - Final Urine, Clean Catch MIXED PETE SUGGESTIVE OF CONTAMINATION. Med Orders - Current: Current Medications Acetaminophen (Tylenol) 650 mg PO Q4H PRN PRN Reason: Pain Last Admin: 11/30/18 12:12 Dose: 650 mg Diltiazem HCl (Cardizem Cd) 180 mg PO BEDTIME [facility] Last Admin: 11/30/18 20:28 Dose: 180 mg Hydromorphone HCl (Dilaudid) 0.5 mg IVPUSH Q2H PRN PRN Reason: Pain Last Admin: 11/30/18 06:39 Dose: 0.5 mg Magnesium Sulfate 4 gm/ Premix 50 mls @ 12.5 mls/hr IV ONETIME ONE Stop: 12/01/18 11:29 Last Admin: 12/01/18 08:08 Dose: 12.5 mls/hr Levofloxacin (Levaquin) 750 mg PO Q48H [facility] Last Admin: 11/30/18 21:04 Dose: 750 mg Magnesium Oxide (Magnesium Oxide) 400 mg PO BID [facility] Last Admin: 12/01/18 08:12 Dose: 400 mg Metronidazole (Flagyl) 500 mg PO Q8H [facility] Last Admin: 12/01/18 05:18 Dose: 500 mg Ondansetron HCl (Zofran) 4 mg IVPUSH Q6H PRN PRN Reason: Nausea Oxycodone HCl (Oxycodone) 5 mg PO Q6H PRN PRN Reason: Pain Pantoprazole Sodium (Protonix) 40 mg PO DAILY [facility] Last Admin: 12/01/18 08:12 Dose: 40 mg Own Med * Potassium (Citrate Er 10 Meq) 0 each PO BEDTIME [facility] Last Admin: 11/30/18 20:29 Dose: 1 each Rosuvastatin Calcium (Crestor) 5 mg PO BEDTIME [facility] Last Admin: 11/30/18 20:44 Dose: Not Given Discontinued Medications Diltiazem HCl (Cardizem Cd) 180 mg PO DAILY [facility] Last Admin: 11/29/18 15:07 Dose: Not Given Furosemide (Lasix) 10 mg IVPUSH ONETIME ONE Stop: 11/30/18 12:35 Last Admin: 11/30/18 13:12 Dose: 10 mg Sodium Chloride (Normal Saline) 1,000 mls @ 125 mls/hr IV ONETIME ONE Stop: 11/29/18 01:42 Last Admin: 11/28/18 17:52 Dose: 500 mls/hr Metronidazole 500 mg/ Premix 100 mls @ 100 mls/hr IV Q8H [facility] Last Admin: 11/30/18 05:03 Dose: 100 mls/hr Levofloxacin/Dextrose 500 mg/ (Premix) 100 mls @ 100 mls/hr IV Q24H [facility] Last Admin: 11/28/18 21:19 Dose: 100 mls/hr Sodium Chloride (Normal Saline) 1,000 mls @ 125 mls/hr IV ASDIRECTED [facility] Last Admin: 11/30/18 03:45 Dose: 125 mls/hr Magnesium Sulfate 4 gm/ Premix 50 mls @ 12.5 mls/hr IV ONETIME ONE Stop: 11/29/18 11:20 Last Admin: 11/29/18 09:02 Dose: 12.5 mls/hr Levofloxacin (Levaquin) 750 mg PO Q24H [facility] Potassium Citrate Er (10 Meq) 0 each PO DAILY [facility] Last Admin: 11/29/18 12:03 Dose: Not Given Potassium Chloride (Klor-Con 10) 10 meq PO ONETIME ONE Stop: 11/30/18 12:35 Last Admin: 11/30/18 13:12 Dose: 10 meq Rosuvastatin Calcium (Crestor) 5 mg PO DAILY [facility] Last Admin: 11/29/18 12:03 Dose: Not Given - Exam General: Reports: Alert, Oriented HEENT: Reports: Pupils Equal Neck: Reports: Supple Lungs: Reports: Clear to Auscultation, Normal Respiratory Effort Cardiovascular: Reports: Regular Rate, Regular Rhythm GI/Abdominal Exam: Normal Bowel Sounds, Soft, No Distention, Tender (Right lower quadrant tenderness that is mild without guarding or rebound.) Back Exam: Reports: Normal Inspection Extremities: Normal Inspection, Pedal Edema (Minimal, 1+, pitting edema) Skin: Reports: Warm, Dry, Intact Psy/Mental Status: Reports: Alert, Normal Affect, Normal Mood
--- NOTE | 2018-12-02 07:00 | CR ---
Abdomen: Supine and upright views of the abdomen were obtained. Comparison: Prior abdominal x-ray of 06/03/10. Calcifications are seen within the pelvis compatible with phleboliths. Bowel gas pattern appears normal. Vascular calcification is seen within the abdominal aorta. No free air is seen. Impression: 1. Incidental findings. Nothing acute is appreciated. Diagnostic code #2
--- NOTE | 2018-12-02 07:00 | CT ---
CT abdomen and pelvis Technique: Multiple axial sections were obtained from above the dome of the diaphragm inferiorly through the pubic symphysis. Intravenous contrast was utilized. No oral contrast has been given. Delayed images were obtained of the bladder. Comparison: Prior CT abdomen and pelvis exam of 06/23/18. Findings: Slight atelectasis noted within both lung bases. Liver contains no focal abnormality. Nodule is noted within the right adrenal gland which appears stable from previous exam and has negative Hounsfield unit measurements compatible with fat which is compatible with benign adenoma. Left adrenal gland is unremarkable. Spleen appears within normal limits. Gallbladder contains no calcified gallstones. Pancreas appears within normal limits. Kidneys show generalized cortical thinning. Small cysts noted within both kidneys. Small nonobstructing calculi within the right kidney seen previously are not well seen on current exam due to contrast. Delayed images show minimal contrast within the bladder. 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 Atherosclerotic calcification continues into the iliac vessels. No retroperitoneal adenopathy is seen. No mesenteric abnormalities are seen. Numerous sigmoid diverticuli are seen. Haziness is noted around a portion of the sigmoid colon which is felt compatible with diverticulitis. No diverticular abscess or extraluminal air is seen at this time. No free fluid is seen. Appendix is seen and is normal in size. Mild degenerative change is noted within the spine. Impression: 1. Findings compatible with diverticulitis. 2. Other incidental findings. Diagnostic code #3 I agree with preliminary report from [facility], finalized on 11/28/18, 9:21 PM Central Time
== END 2018-12-01 13:18 | disposition home or self-care (01) ==
LOC: JD.ED 15:56 → JD.MS 21:44
PROVIDERS: ADMIT Family Medicine; ATTEND Family Medicine
DX: K57.32 Diverticulitis of large intestine without perforation or abscess without bleeding (principal); N39.0 Urinary tract infection, site not specified; I10 Essential (primary) hypertension; E78.00 Pure hypercholesterolemia, unspecified; K21.9 Gastro-esophageal reflux disease without esophagitis; F17.210 Nicotine dependence, cigarettes, uncomplicated; Z79.899 Other long term (current) drug therapy; Z88.0 Allergy status to penicillin; Z88.1 Allergy status to other antibiotic agents; Z88.6 Allergy status to analgesic agent
CPT/HCPCS: 36415; 74019; 74177; 80048; 80053; 81001; 83735; 85007; 85025; 85027; 86140; 87086; 96360; 96361; 99285; A9270; J1170; J1956; J3475; J3490; J7040; 99283

== ENCOUNTER 2024-04-23 10:59 | Day surgery (SDC) | payer MEDICARE, OTHER ==
[~2024-04-23 10:59] MED LIST: Cefuroxime 10 MG/ML SYRINGE EYELF SCH
[2024-04-23] MEDS: Polymyxin B/Trimethoprim 10 ML Bottle EYELF SCH (12:36)
[2024-04-23] MEDS: Brimonidine 0.2% Ophth Soln 5 ML Bottle EYELF SCH (12:41)
[2024-04-23] MEDS: Phenylephrine 2.5% Ophth Soln 2 ML Bot EYELF SCH (12:45)
[2024-04-23] MEDS: Tropicamide 1% Ophth Soln 3 ML Bottle EYELF SCH (13:08)
[2024-04-23] MEDS: Tetracaine HCl/PF 0.5% 4 ML Bottle EYEBOTH SCH (13:30)
[2024-04-23] MEDS: Lidocaine 1% PF 2 ML SDV INJECT SCH (13:53)
[2024-04-23] MEDS: Pilocarpine 4% Ophth Soln 15 ML Bot EYELF SCH (14:12)
[2024-04-23 14:33] VITALS: BP 154/70; PULSE 67
== END 2024-04-23 14:22 | disposition home or self-care (01) ==
LOC: JD.SDS 10:59
PROVIDERS: ATTEND Ophthalmology
DX: H25.813 Combined forms of age-related cataract, bilateral (principal); H21.42 Pupillary membranes, left eye; H21.81 Floppy iris syndrome; H35.81 Retinal edema; H35.30 Unspecified macular degeneration; H02.831 Dermatochalasis of right upper eyelid; H02.834 Dermatochalasis of left upper eyelid; H57.813 Brow ptosis, bilateral; H11.823 Conjunctivochalasis, bilateral; I10 Essential (primary) hypertension; E78.2 Mixed hyperlipidemia; Z79.899 Other long term (current) drug therapy
CPT/HCPCS: A9270-GY; J3490

== ENCOUNTER 2024-05-28 08:51 | Day surgery (SDC) | payer MEDICARE, OTHER ==
[~2024-05-28 08:51] MED LIST changes: -Cefuroxime 10 MG/ML SYRINGE EYELF SCH; +Cefuroxime 10 MG/ML SYRINGE EYERT SCH
[2024-05-28] MEDS: Polymyxin B/Trimethoprim 10 ML Bottle EYERT SCH (10:00)
[2024-05-28] MEDS: Brimonidine 0.2% Ophth Soln 5 ML Bottle EYERT SCH (10:04)
[2024-05-28] MEDS: Phenylephrine 2.5% Ophth Soln 2 ML Bot EYERT SCH (10:09)
[2024-05-28] MEDS: Tropicamide 1% Ophth Soln 3 ML Bottle EYERT SCH (10:14)
[2024-05-28] MEDS: Tetracaine HCl/PF 0.5% 4 ML Bottle EYEBOTH SCH (11:05)
[2024-05-28] MEDS: Lidocaine 1% PF 2 ML SDV INJECT SCH (11:27)
[2024-05-28] MEDS: Pilocarpine 4% Ophth Soln 15 ML Bot EYERT SCH (11:39)
[2024-05-28 13:53] VITALS: PULSE 61
[2024-05-28 15:30] VITALS: BP 127/93
== END 2024-05-28 11:49 | disposition home or self-care (01) ==
LOC: JD.SDS 08:51
PROVIDERS: ATTEND Ophthalmology
DX: H25.811 Combined forms of age-related cataract, right eye (principal); H21.81 Floppy iris syndrome; I10 Essential (primary) hypertension; E78.2 Mixed hyperlipidemia; Z79.899 Other long term (current) drug therapy
CPT/HCPCS: 66984; A9270; J3490; V2632